=== PATIENT | female | born 1960 | race Caucasian/White ===

== ENCOUNTER → 2021-12-12 | Outpatient (CLI) | payer OTHER ==
[2021-12-12 10:50] LABS: ALANINE AMINOTRANSFERASE 19 U/L (0-55); ALBUMIN 4.7 GM/DL (3.2-4.5); ALKALINE PHOSPHATASE 93 U/L (40-136); BILIRUBIN,TOTAL 0.5 MG/DL (0.1-1.0); BUN/CREATININE RATIO 23; CALCIUM 9.5 MG/DL (8.5-10.1); CARBON DIOXIDE 25 MMOL/L (21-32); CHLORIDE 103 MMOL/L (98-107); CREATININE SERUM 0.84 MG/DL (0.60-1.30); GFR ESTIMATED 80; GLUCOSE 109 MG/DL (70-105); POTASSIUM 4.2 MMOL/L (3.6-5.0); SODIUM 139 MMOL/L (135-145); TOTAL PROTEIN 7.8 GM/DL (6.4-8.2)
[2021-12-12 15:01] LABS: CHOLESTEROL 215 MG/DL (< 200); HDL CHOLESTEROL 60 MG/DL (40-60); TRIGLYCERIDES 99 MG/DL (<150); VLDL CHOLESTEROL 20 MG/DL (5-40)
[2021-12-12 15:24] LABS: FREE T4 (FREE THYROXINE) 0.86 NG/DL (0.70-1.48)
== END ==
LOC: LAB FS 10:00
PROVIDERS: ATTEND Registered Nurse Emergency
DX: Z00.00 Encounter for general adult medical examination without abnormal findings (principal); Z12.39 Encounter for other screening for malignant neoplasm of breast; I10 Essential (primary) hypertension; F32.9 Major depressive disorder, single episode, unspecified; K21.9 Gastro-esophageal reflux disease without esophagitis
CPT/HCPCS: 36415; 80053; 80061; 84439; 84443

== ENCOUNTER 2022-03-09 10:26 | Emergency (ER) | payer OTHER ==
[~2022-03-09] VITALS: Ht 165 cm; Wt 83.0 kg
[2022-03-09] MEDS ORDERED: NS IV 1000 ML 1,000 ML IV STA (11:26)
[2022-03-09] MEDS ORDERED: ONDANSETRON 4 MG/2 ML (SDV) Z0FRAN IVP ONE (11:30)
[2022-03-09] MEDS ORDERED: KETOROLAC 30 MG/ML VIAL IVP ONE (11:30)
--- NOTE | 2022-03-09 11:30 | ED Abdominal Pain ---
General Chief Complaint: Abdominal/GI Problems Stated Complaint: BACK PAIN - NAUSEA Nursing Triage Note: LEFT SIDED FLANK PAIN STARTING YESTERDAY. Source of Information: Patient Exam Limitations: No Limitations (LAZARO MOTA) History of Present Illness Date Seen by Provider: March 09, 2022 Time Seen by Provider: 11:28 Initial Comments Patient is a 61-year-old female with a history of kidney stones presents ED with left flank pain with radiation to left lower quadrant. Symptoms started yesterday evening. Initially described as sharp and intermittent. Has been constant since 4:00 this morning. Denies taking medication. History of kidney stones feels very similar. Denies any trauma. She reports nausea with a few episodes of vomiting today. No diarrhea. History of cholecystectomy and hernia repair in the past. Denies of any dysuria, hematuria, increased urine frequency, bowel or urine incontinence, saddle paresthesia, chest pain, shortness of breath or fever. (LAZARO MOTA) Allergies and Home Medications Allergies Uncoded Allergies: IV CONTRAST DYE (Adverse Reaction, Severe, VOMITING, 03/09/22) Patient Home Medication List Home Medication List Reviewed: Yes (LAZARO MOTA) Cephalexin (Cephalexin) 500 Mg Tablet, 500 MG PO TID Prescribed by: VIBHA COKER on 03/09/22 1320 Hydrocodone/Acetaminophen (Hydrocodone-Acetamin 5-325 mg) 5 Mg-325 Mg Tablet, 1 TAB PO Q4H PRN for PAIN-MODERATE (5-7) Prescribed by: VIBHA COKER on 03/09/22 1320 Ondansetron (Ondansetron Odt) 4 Mg Tab.rapdis, 4 MG PO Q6H Prescribed by: VIBHA COKER on 03/09/22 1320 Tamsulosin HCl (Flomax) 0.4 Mg Cap, 0.4 MG PO DAILY Prescribed by: VIBHA COKER on 03/09/22 1320 Review of Systems Review of Systems Constitutional: No chills, No diaphoresis, No malaise, No weakness EENTM: No Blurred Vision, No Double Vision, No Eye Pain Respiratory: Denies Cough, Denies Orthopnea, Denies Shortness of Air, Denies SOA at Rest Cardiovascular: Denies Chest Pain, Denies Edema Gastrointestinal: Abdominal Pain; Denies Diarrhea; Nausea, Vomiting Genitourinary: Denies Burning, Denies Discharge, Denies Drainage, Denies Frequency; Flank Pain; Denies Hematuria Musculoskeletal: back pain; No joint pain Skin: No change in color, No change in hair/nails (LAZARO MOTA) All Other Systems Reviewed Negative Unless Noted: Yes (LAZARO MOTA) Past Tilkfma-Qamqca-Lakrnn Hx Patient Social History Tobacco Use?: No Substance use?: No Alcohol Use?: No (LAZARO MOTA) Immunizations Up To Date Second COVID19 Vaccination Pa: UNKNOWN COVID19 Vaccine Ophthalmic Asst: JAMI (LAZARO MOTA) Physical Exam Vital Signs Vital Signs - First Documented 03/09/22 10:49 Temp 36.3 Pulse 76 Resp 16 B/P (MAP) 148/89 (108) Pulse Ox 98 O2 Delivery Room Air (YANCY US MD) Vital Signs Capillary Refill : Less Than 3 Seconds (LAZARO MOTA) Height/Weight/BMI Height: '" Weight: lbs. oz. kg; 30.00 BMI Method: General Appearance: WD/WN, no apparent distress HEENT: PERRL/EOMI, normal ENT inspection, TMs normal, pharynx normal Neck: non-tender, full range of motion, supple, normal inspection Respiratory: chest non-tender, lungs clear, normal breath sounds, no respirat ory distress, no accessory muscle use Cardiovascular: regular rate, rhythm, no edema, no gallop, no JVD Gastrointestinal: normal bowel sounds, non tender, soft, no organomegaly, no pulsatile mass Extremities: normal range of motion, non-tender, normal inspection Back: normal inspection, no CVA tenderness, no vertebral tenderness Neurologic/Psychiatric: 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0-12.2 fL Immature Granulocyte % (Auto) 0 % Neutrophils (%) (Auto) 87 H 42-75 % Lymphocytes (%) (Auto) 8 L 12-44 % Monocytes (%) (Auto) 4 0-12 % Eosinophils (%) (Auto) 0 0-10 % Basophils (%) (Auto) 0 0-10 % Neutrophils # (Auto) 9.0 H 1.8-7.8 10^3/uL Lymphocytes # (Auto) 0.8 L 1.0-4.0 10^3/uL Monocytes # (Auto) 0.4 0.0-1.0 10^3/uL Eosinophils # (Auto) 0.0 0.0-0.3 10^3/uL Basophils # (Auto) 0.0 0.0-0.1 10^3/uL Immature Granulocyte # (Auto) 0.0 0.0-0.1 10^3/uL Neutrophils % (Manual) 86 % Lymphocytes % (Manual) 9 % Monocytes % (Manual) 3 % Eosinophils % (Manual) 2 % Blood Morphology Comment NORMAL Sodium Level 140 135-145 MMOL/L Potassium Level 4.1 3.6-5.0 MMOL/L Chloride Level 105 98-107 MMOL/L Carbon Dioxide Level 24 21-32 MMOL/L Anion Gap 11 5-14 MMOL/L Blood Urea Nitrogen 23 H 7-18 MG/DL Creatinine 0.92 0.60-1.30 MG/DL Estimat Glomerular Filtration Rate 71 BUN/Creatinine Ratio 25 Glucose Level 134 H 70-105 MG/DL Calcium Level 10.1 8.5-10.1 MG/DL Corrected Calcium 8.5-10.1 MG/DL Total Bilirubin 0.7 0.1-1.0 MG/DL Aspartate Amino Transf (AST/SGOT) 33 5-34 U/L Alanine Aminotransferase (ALT/SGPT) 28 0-55 U/L Alkaline Phosphatase 87 40-136 U/L Total Protein 7.6 6.4-8.2 GM/DL Albumin 4.6 H 3.2-4.5 GM/DL Lipase 23 8-78 U/L Urine Color YELLOW Urine Clarity CLEAR Urine pH 7.0 5-9 Urine Specific [place] 1.025 H 1.016-1.022 Urine Protein NEGATIVE NEGATIVE Urine Glucose (UA) NEGATIVE NEGATIVE Urine Ketones NEGATIVE NEGATIVE Urine Nitrite NEGATIVE NEGATIVE Urine Bilirubin NEGATIVE NEGATIVE Urine Urobilinogen 0.2 < = 1.0 MG/DL Urine Leukocyte Esterase NEGATIVE NEGATIVE Urine RBC (Auto) 2+ H NEGATIVE Urine RBC 25-50 H /HPF Urine WBC 0-2 /HPF Urine Squamous Epithelial Cells 2-5 /HPF Urine Crystals NONE /LPF Urine Bacteria TRACE /HPF Urine Casts NONE /LPF Urine Mucus SMALL H /LPF Urine Culture Indicated NO (YANCY US MD) My Orders Orders - YANCY US MD Ua Culture If Indicated (03/09/22 10:47) (YANCY US MD) Medications Given in ED Current Medications Medications Dose Ordered Sig/Eleuterio Route Start Time Stop Time Status Last Admin Dose Admin Ketorolac Tromethamine 30 mg ONCE ONCE IVP 03/09/22 11:30 03/09/22 11:31 DC 03/09/22 11:53 30 MG Ondansetron HCl 4 mg ONCE ONCE IVP 03/09/22 11:30 03/09/22 11:31 DC 03/09/22 11:52 4 MG (YANCY US MD) Vital Signs/I&O 03/09/22 03/09/22 10:49 13:22 Temp 36.3 Pulse 76 76 Resp 16 16 B/P (MAP) 148/89 (108) 141/81 Pulse Ox 98 96 O2 Delivery Room Air Room Air (YANCY US MD) Blood Pressure Mean: 108 Departure Communication (PCP) Patient is a 61-year-old female presents ED with left flank pain with radiation to left groin. History of kidney stones. Urinalysis positive for hematuria. Normal white blood count and kidney function. CT Abdo pelvis shows 2 left proximal obstructing stones with moderate hydronephrosis with left perinephric stranding. Patient was discussed with Dr. Lugo urologist who recommends follo wing up at 330 on Sunday. Will discharge with Keflex for antibiotic, Flomax, Zofran and pain medication. Recommends KUB before appointment on Sunday. Discussed pain control at home. If not able to urinate, passing blood clots, severe pain to return back to ED for further evaluation. (LAZARO MOTA) Impression Primary Impression: Ureterolithiasis Disposition: HOME, SELF-CARE Condition: Stable Departure-Patient Inst. Decision time for Depature: 13:18 (LAZARO MOTA) Referrals: BRITTANEY FORBES APRN (PCP) Primary Care Physician BIANCA KIMBALL MD (Family) Primary Care Physician STORM LUGO MD Patient Instructions: Kidney Stones (DC) Add. Discharge Instructions: Get abdominal x-ray at hospital before appointment at [address]o on Sunday All discharge instructions reviewed with patient and/or family. Voiced understanding. Scripts Hydrocodone/Acetaminophen (Hydrocodone-Acetamin 5-325 mg) 5 Mg-325 Mg Tablet 1 TAB PO Q4H PRN for PAIN-MODERATE (5-7), #12 TAB Prov: LAZARO MOTA 03/09/22 Tamsulosin HCl (Flomax) 0.4 Mg Cap 0.4 MG PO DAILY, #20 CAP Prov: LAZARO MOTA 03/09/22 Cephalexin (Cephalexin) 500 Mg Tablet 500 MG PO TID for 10 Days, #30 TAB Prov: LAZARO MOTA 03/09/22 Ondansetron (Ondansetron Odt) 4 Mg Tab.rapdis 4 MG PO Q6H, #8 TAB Prov: LAZARO MOTA 03/09/22 ATTENDING PHYSICIAN NOTE: I was physically present as attending physician in the emergency department during the care of this patient, but I was not directly involved in the decision making or delivery of care for this patient. (YANCY US MD) LAZARO MOTA March 09, 2022 11:30 YANCY US MD March 09, 2022 20:04
[2022-03-09 11:32] LABS: BILIRUBIN,URINE NEGATIVE (NEGATIVE); CLARITY,URINE CLEAR; COLOR,URINE YELLOW; GLUCOSE, URINE (UA) NEGATIVE (NEGATIVE); KETONES,URINE NEGATIVE (NEGATIVE); LEUKOCYTE ESTERASE ,URINE NEGATIVE (NEGATIVE); NITRITE,URINE NEGATIVE (NEGATIVE); PROTEIN,URINE NEGATIVE (NEGATIVE)
[2022-03-09 11:35] LABS: BASOPHILS % (AUTO) 0 % (0-10); EOSINOPHILS % (AUTO) 0 % (0-10); HEMATOCRIT 43 % (35-52); HEMOGLOBIN 14.1 g/dL (11.5-16.0); LYMPHOCYTES # (AUTO) 0.8 10^3/uL (1.0-4.0); LYMPHOCYTES % (AUTO) 8 % (12-44); MEAN CORPUSCULAR HEMOGLOBIN 29 pg (25-34); MEAN CORPUSCULAR HGB CONC 33 g/dL (32-36); MEAN CORPUSCULAR VOLUME 86 fL (80-99); MEAN PLATELET VOLUME 12.1 fL (9.0-12.2); MONOCYTES # (AUTO) 0.4 10^3/uL (0.0-1.0); MONOCYTES % (AUTO) 4 % (0-12); NEUTROPHILS % (AUTO) 87 % (42-75); PLATELET COUNT 217 10^3/uL (130-400); WHITE BLOOD COUNT 10.4 10^3/uL (4.3-11.0)
[2022-03-09 11:37] LABS: ALBUMIN 4.6 GM/DL (3.2-4.5); CHLORIDE 105 MMOL/L (98-107); POTASSIUM 4.1 MMOL/L (3.6-5.0); SODIUM 140 MMOL/L (135-145)
[2022-03-09 11:38] LABS: CALCIUM 10.1 MG/DL (8.5-10.1)
[2022-03-09 11:39] LABS: GLUCOSE 134 MG/DL (70-105); TOTAL PROTEIN 7.6 GM/DL (6.4-8.2)
[2022-03-09 11:40] LABS: BACTERIA,URINE TRACE /HPF; RBC,URINE 25-50 /HPF; WBC,URINE 0-2 /HPF
[2022-03-09 11:40] LABS: CARBON DIOXIDE 24 MMOL/L (21-32)
[2022-03-09 11:41] LABS: BILIRUBIN,TOTAL 0.7 MG/DL (0.1-1.0)
[2022-03-09 11:43] LABS: ALKALINE PHOSPHATASE 87 U/L (40-136); CREATININE SERUM 0.92 MG/DL (0.60-1.30); GFR ESTIMATED 71
[2022-03-09 11:44] LABS: BUN/CREATININE RATIO 25
[2022-03-09 11:46] LABS: ALANINE AMINOTRANSFERASE 28 U/L (0-55); LIPASE 23 U/L (8-78)
--- NOTE | 2022-03-09 12:00 | Diagnostic Imaging Report ---
PROCEDURE: CT urinary tract, rule out kidney stone. TECHNIQUE: Multiple contiguous axial images were obtained through the abdomen and pelvis without the use of intravenous contrast. Auto Exposure Controls were utilized during the CT exam to meet ALARA standards for radiation dose reduction. INDICATION: Back pain, nausea, left flank pain FINDINGS: There are likely adjacent obstructing proximal left ureteral stones at or just below the ureterovesical junction in aggregate measuring 9.7 mm cephalocaudal with the larger more proximal stone measuring a diameter of 6.5 mm. The stone burden results in moderate upstream hydronephrosis with perinephric stranding and edema. There is a punctate nonobstructing 2 mm lower pole calculus within the contralateral right kidney. The adrenals are negative. The urinary bladder unremarkable. Lung bases, liver, spleen, adrenals and pancreas negative. The aorta is nonaneurysmal. The gallbladder surgically absent. There is no appendicitis or diverticulitis. There is exophytic calcified uterine fibroids directed posteriorly measuring 4.2 cm. No acute adnexal abnormality. No free fluid. IMPRESSION: 1. Obstructing adjacent calculi left proximal ureter near the UPJ with moderate upstream hydronephrosis, stone dimensions above. Contralateral nonobstructing punctate right kidney stone. 2. Fibroid uterus. Dictated by: Dictated on workstation # [id number]
[2022-03-09 12:09] LABS: EOSINOPHILS % (MANUAL) 2 %; LYMPHOCYTES % (MANUAL) 9 %; MONOCYTES % (MANUAL) 3 %; NEUTROPHILS % (MANUAL) 86 %; RBC MORPH NORMAL
--- NOTE | 2022-03-09 12:51 | Diagnostic Imaging Report ---
EXAMINATION: Abdomen 1 view HISTORY: left flank pain COMPARISON: CT abdomen and pelvis from 03/09/2022. FINDINGS: There is a moderate amount of gas and stool throughout the colon. Nonobstructive bowel gas pattern. No radiopaque foreign body. The lung bases are clear. Surgical changes from lumbar spinal fusion. Sclerotic lesion within the right ilium seen on same-day CT. IMPRESSION: Moderate stool burden without other acute abnormality in the abdomen. Dictated by: Dictated on workstation # [id number]
[2022-03-09] MEDS ORDERED: ONDA4TAB11 PO (13:20)
[2022-03-09] MEDS ORDERED: ACHD5005 PO (13:20)
[2022-03-09] MEDS ORDERED: TMSL.4C PO (13:20)
[2022-03-09] MEDS ORDERED: CEPH500T PO (13:20)
[2022-03-09 13:22] VITALS: BP 141/81
== END 2022-03-09 13:22 | disposition home or self-care (01) ==
LOC: EDUNIT# 10:26 → ER 10:28
DX: N13.2 Hydronephrosis with renal and ureteral calculous obstruction (principal); Z87.442 Personal history of urinary calculi; Z90.49 Acquired absence of other specified parts of digestive tract
CPT/HCPCS: 36415; 74018; 74176; 80053; 81000; 83690; 85007; 85027

== ENCOUNTER → 2022-03-13 | Outpatient (CLI) | payer OTHER ==
[~2022-03-13] MED LIST: ACHD5005 PO; CEPH500T PO; CHOL100048 PO; ESOM20CA PO; LISI20TA26 PO; MELO15TA14 PO; MULT-1136 PO; ONDA4TAB11 PO; PARO-49 PO; TMSL.4C PO
--- NOTE | 2022-03-13 14:29 | Diagnostic Imaging Report ---
Indication: Nephrolithiasis KUB 2:13 PM There is calcification projecting over the left proximal ureter. The gallbladder surgically absent. Patient's had fusion of the spine at the thoracolumbar junction. IMPRESSION: 1 cm calculus projecting over the left proximal ureter near the ureteral pelvic junction. This appears unchanged compared to 03/09/2022. Dictated by: Dictated on workstation # [id number]
== END ==
LOC: RAD 13:47
PROVIDERS: ATTEND Physician Assistant
DX: N20.2 Calculus of kidney with calculus of ureter (principal)
CPT/HCPCS: 74018

== ENCOUNTER 2022-03-14 05:30 | Outpatient (CLI) | payer OTHER ==
[~2022-03-14] VITALS: Ht 165.1 cm; Wt 84.0 kg
[~2022-03-14 05:30] MED LIST changes: -CHOL100048 PO; -ESOM20CA PO; -LISI20TA26 PO; -MELO15TA14 PO; -MULT-1136 PO; -PARO-49 PO
[2022-03-15] MEDS ORDERED: MELO15TA14 PO (14:53)
[2022-03-15] MEDS ORDERED: LISI20TA26 PO (14:53)
[2022-03-15] MEDS ORDERED: ESOM20CA PO (14:53)
[2022-03-15] MEDS ORDERED: PARO-49 PO (14:53)
[2022-03-15] MEDS ORDERED: CHOL100048 PO (14:53)
[2022-03-15] MEDS ORDERED: MULT-1136 PO (14:53)
== END 2022-03-15 15:00 | disposition home or self-care (01) ==
LOC: PREOP 05:30
PROVIDERS: ATTEND Urology
DX: Z01.818 Encounter for other preprocedural examination (principal)

== ENCOUNTER 2022-03-21 07:00 | Day surgery (SDC) | payer OTHER ==
[2022-03-21] VITALS (9 sets, daily range): BP systolic 140–170; BP diastolic 67–85
[~2022-03-21] VITALS: Ht 165.1 cm; Wt 84.0 kg
[~2022-03-21 07:00] MED LIST changes: +CHOL100048 PO; +ESOM20CA PO; +LISI20TA26 PO; +MELO15TA14 PO; +MULT-1136 PO; +PARO-49 PO; +cefTRIAXone 1 GM PRE-MIX 50 ML IV ONE
--- NOTE | 2022-03-21 07:21 | Progress Note-Pre Operative ---
Pre-Operative Progress Note H&P Reviewed The H&P was reviewed, patient examined and no changes noted. Date Seen by Provider: March 21, 2022 Time Seen by Provider: 07:20 Date H&P Reviewed: March 21, 2022 Time H&P Reviewed: 07:20 Pre-Operative Diagnosis: LT PROXIMAL URETERAL STONE STORM LUGO MD March 21, 2022 07:21
[2022-03-21] MEDS: LACTATED RINGERS 1,000 ML IV PRN ×2 (07:23→10:39)
--- NOTE | 2022-03-21 08:35 | Diagnostic Imaging Report ---
CLINICAL INDICATION: Patient with left ESWL. EXAM: KUB x-ray. COMPARISON: X-ray of the abdomen dated 03/13/2022. CT scan of the abdomen and pelvis without contrast dated 03/09/2022. FINDINGS: Again seen is a calcification overlying the medial left abdominal region at the L3 vertebral body level measuring roughly 10 to 11 mm in craniocaudal dimension. Stable phleboliths in the left low pelvis. There are no other calcifications overlying the expected region of the kidneys and bladder. Speckled amorphous calcification involving the left side of the pelvis is related to a partially calcified fibroid. A sclerotic area involving the posterior medial right iliac crest is again seen. There is a nonobstructed bowel gas pattern. There is no evidence of abdominal free air. Surgical clips are seen overlying the right upper quadrant which could be related to cholecystectomy changes. T12 through L2 posterior spinal fusion hardware is noted. IMPRESSION: 1: There is a calcification seen to the left side of the L3 vertebra which may represent a stone within the left ureter. If necessary, a CT scan would better evaluate. 2: The remainder of this exam shows no significant interval change compared to the prior study of comparison. Dictated by: Dictated on workstation # [id number]
--- NOTE | 2022-03-21 09:05 | Progress Note-Post Operative ---
Post-Operative Progess Note Surgeon (s)/Feed Research Aide (s) Surgeon STORM LUGO MD Feed Research Aide: NONE Pre-Operative Diagnosis LEFT PROXIMAL URETERAL STONE Post-Operative Diagnosis SAME Procedure & Operative Findings Date of Procedure 03/21/22 Procedure Performed/Findings LT ESWL Anesthesia Type GENERAL Estimated Blood Loss Estimated blood loss (mL): NONE Specimens/Packing Specimens Removed NONE Packing: NONE STORM LUGO MD March 21, 2022 09:05
--- NOTE | 2022-03-21 09:06 | Discharge Inst-Urology ---
Discharge Inst-Urology Reconcile Patient Problems Problems Reviewed?: Yes Final Diagnosis LT PROXIMAL URETERAL STONE Patient Instructions/Follow Up Plan/Assessment/Instructions Please make appointment to been seen in office in 2 weeks. KUB prior to it KUB on way home Post ESWL instructions Increase oral fluids for 48 hours and then as needed. Diet and Activity as tolerated. If questions or concerns contact your physician Or seek help at emergency department. STORM LUGO MD March 21, 2022 09:06
[2022-03-21] MEDS ORDERED: fentaNYL INJ 100 MCG/2 ML AMP ONE (09:59)
[2022-03-21] MEDS ORDERED: MIDAZOLAM 2 MG/2 ML (VERSED) VIAL ONE (10:08)
[2022-03-21] MEDS ORDERED: LIDOCAINE PF 2% 5 ML (XYLOCAINE) VIAL ONE (10:31)
[2022-03-21] MEDS ORDERED: FUROSEMIDE 40 MG/4 ML INJ (LASIX) ONE (10:31)
[2022-03-21] MEDS ORDERED: KETOROLAC 30 MG/ML VIAL ONE (10:31)
[2022-03-21] MEDS ORDERED: proPOfol 200 MG/20 ML (DIPRIVAN) VIAL IV ONE (10:31)
[2022-03-21] MEDS ORDERED: ONDANSETRON 4 MG/2 ML (SDV) Z0FRAN ONE (10:31)
[2022-03-21] MEDS ORDERED: SEVOFLURANE (ULTANE) 15 ML INHAL SOLN ONE (10:34)
[2022-03-21] MEDS ORDERED: TMSL.4C PO (11:36)
[2022-03-21] MEDS ORDERED: KETO10TA PO (11:36)
[2022-03-21] MEDS ORDERED: NITR-65 PO (11:36)
--- NOTE | 2022-03-21 11:52 | Anesthesia-General Post-Op ---
General Patient Condition Mental Status/LOC: Same as Preop Cardiovascular: Satisfactory Nausea/Vomiting: Absent Respiratory: Satisfactory Pain: Controlled Complications: Absent Post Op Complications Complications None Follow Up Care/Instructions Patient Instructions None needed. Anesthesia/Patient Condition Patient Condition Patient is doing well, no complaints, stable vital signs, no apparent adverse anesthesia problems. No complications reported per nursing. LAURIE STAHL CRNA March 21, 2022 11:52
--- NOTE | 2022-03-21 19:26 | OPERATIVE REPORT ---
DATE OF SERVICE: 03/21/2022 PREOPERATIVE DIAGNOSIS: Left proximal ureteral stone. POSTOPERATIVE DIAGNOSIS: Left proximal ureteral stone. OPERATION PERFORMED: Left ESWL. SURGEON: Jarod Lugo MD ANESTHESIA: General. COMPLICATIONS: None. DESCRIPTION OF PROCEDURE: Under satisfactory general anesthesia, the patient in supine position on the ESWL table. The left proximal ureteral stone was localized. Shocks were delivered at kV of 6. Total of 2500 shocks completely fragmented the stone that was hardly visualized. The patient received 40 mg of Lasix and 30 mg of Toradol IV at the end of the procedure. She tolerated the procedure and anesthesia well and was sent to recovery room in stable condition. CC: Dr. De Paz - requested, unable to deliver Job ID: [id number] DocumentID: [id number] Dictated Date: 03/21/2022 10:30:46 Catal[employer] And Special Products Manager Date: 03/21/2022 14:55:29 Dictated By: JAROD LUGO MD
== END 2022-03-21 12:20 | disposition home or self-care (01) ==
LOC: SDC 07:00
PROVIDERS: ATTEND Urology
DX: N20.1 Calculus of ureter (principal); K21.9 Gastro-esophageal reflux disease without esophagitis; I10 Essential (primary) hypertension; F32.A Depression, unspecified; F41.9 Anxiety disorder, unspecified; M19.90 Unspecified osteoarthritis, unspecified site; G47.33 Obstructive sleep apnea (adult) (pediatric); Z79.899 Other long term (current) drug therapy
CPT/HCPCS: 74018; 87081

== ENCOUNTER → 2022-04-03 | Outpatient (CLI) | payer OTHER ==
[~2022-04-03] MED LIST changes: +KETO10TA PO; +NITR-65 PO; -cefTRIAXone 1 GM PRE-MIX 50 ML IV ONE
== END ==
LOC: LAB 15:10
PROVIDERS: ATTEND Urology
DX: Z53.9 Procedure and treatment not carried out, unspecified reason (principal)
CPT/HCPCS: 88300

== ENCOUNTER → 2022-04-03 | Outpatient (CLI) | payer OTHER ==
--- NOTE | 2022-04-03 16:45 | Diagnostic Imaging Report ---
Indication: Followup stones. Time of Exam: 2:25 PM Correlation is made with prior radiograph from 03/21/2022. Previously noted calculus in the distribution of proximal left ureter is no longer visualized. No definite radiopaque urinary tract calculi are seen. There are surgical clips right upper quadrant. There are postop changes in the thoracolumbar spine. Impression: Previously noted left ureteral calculus is no longer visualized. Dictated by: Dictated on workstation # [id number]
== END ==
LOC: RAD 14:01
PROVIDERS: ATTEND Urology
DX: N20.1 Calculus of ureter (principal)
CPT/HCPCS: 74018

== ENCOUNTER → 2022-04-11 | Outpatient (CLI) | payer OTHER | LOC: LAB FS 10:28 | PROVIDERS: ATTEND Urology | DX: N20.0 Calculus of kidney (principal) | CPT/HCPCS: 36415; 82140; 82340; 82507; 82570; 83735; 83945; 83986; 84105; 84133; 84300; 84392; 84560 ==